=== PATIENT | female | born 1960 | race Caucasian/White ===

== ENCOUNTER 2018-01-04 13:54 | Emergency (ER) | payer BC ==
[~2018-01-04] VITALS: Ht 157.5 cm; Wt 72.0 kg
[~2018-01-04 13:54] MED LIST: ALBUAER2 INH; AZITTAB PO; BENZ1CAP90 PO; CLR10 PO; JUNEL; LEVO125T7 PO; METH4PAK4 PO; SIMV20TA2 PO
[2018-01-04 13:58] VITALS: TEMP 36.6; Ht 157.5 cm; Wt 72.0 kg
--- NOTE | 2018-01-04 14:25 | DIAGNOSTIC IMAGING REPORT ---
RIGHT KNEE 3 VIEWS CLINICAL HISTORY: Right knee pain. FINDINGS: AP, crosstable lateral, and sunrise views of the right knee are obtained. No prior studies are available for comparison at the time of dictation. The skeletal structures are osteopenic. No fracture is seen. A calcified fabella is incidentally noted. Mild degenerative narrowing is seen in the medial and patellofemoral compartments. There are tiny medial marginal osteophytes and small patellar enthesophytes. There is a small joint effusion. Soft tissue swelling is suggested posterior to the knee. IMPRESSION: 1. No acute bony abnormality is identified in the right knee. 2. Posterior soft tissue edema is suggested and there is a small joint effusion. Electronically signed by: Richmond Camacho M.D. 01/04/2018 2:24 PM Dictated Date/Time: 01/04/2018 2:22 PM
[2018-01-04 14:57] VITALS: BP 142/78; PULSE 75; O2SAT 98
[2018-01-04] MEDS ORDERED: CHOL400T5 PO (14:58)
[2018-01-04] MEDS ORDERED: SULF800T23 PO (14:58)
[2018-01-04] MEDS ORDERED: LEVO88TA3 PO (14:58)
--- NOTE | 2018-01-04 15:59 | EMERGENCY ROOM VISIT NOTE ---
History First contact with patient: 14:08 Chief Complaint: KNEEPAIN Stated Complaint: R KNEE PAIN History of Present Illness The patient is a 57 year old female who presents to the Emergency Room with complaints of right knee pain. The patient reports that she injured her knee a few days ago while pulling something heavy. She started to notice some swelling behind the knee. Today she attempted to kneel down onto the floor, and when she tried to stand up, had severe pain. The patient denies any clicking, locking or instability of the knee. She denies any pain extending into the thigh or leg. She denies paresthesias or numbness of the right lower extremity. The patient denies any prior history of right knee injuries, and currently rates her discomfort a 10 out of 10 with any attempted weightbearing. When not walking, she rates her discomfort a 3 out of 10. Review of Systems 10 system review was performed and was negative except for pertinent positives and negatives as indicated in history of present illness Past Medical/Surgical History Medical Problems: (1) Hyperlipidemia Nec/Nos (2) Hypothyroidism Nos Surgical Problems: (1) No history of previous surgery Family History FH: cancer FH: diabetes mellitus FH: gallbladder disease FH: heart disease FH: hypertension FH: lung disease Social History Smoking Status: Former Smoker Alcohol Use: occasionally Marital Status: Occupation Status: employed Current/Historical Medications Scheduled Cholecalciferol (Vitamin D), 1 TAB PO DAILY Levothyroxine Sodium (Levothyroxine Sodium), 1 TAB PO DAILY Loratadine (Claritin), 10 MG PO DAILY Sulfa/Trimethoprim (Bactrim Ds 800MG/160MG), 1 TAB PO BID Physical Exam Vital Signs Date Time Temp Pulse Resp B/P (MAP) Pulse Ox O2 Delivery O2 Flow Rate FiO2 01/04/18 14:57 75 16 142/78 98 01/04/18 13:58 36.6 75 18 147/85 99 Nasal Cannula Physical Exam CONSTITUTIONAL: Healthy and well nourished. Alert and oriented X 3 with positive affect. HEENT: Normocephalic, atraumatic. Pupils equal, round and reactive. NECK: Full active range of motion without discomfort. MUSCULOSKELETAL: Examination of the right knee does not show any ecchymosis or appreciable joint effusion. The patient does have some fullness posteriorly. She has mild tenderness to the hamstrings, but no obvious tendon defects. Patient has no tenderness to palpation about the patella or proximal fibular region. Negative anterior draw, negative posterior drawer. Collateral ligaments are intact. Pedal pulses are intact. INTEGUMENTARY: No rash or other significant dermatologic conditions noted. NEUROLOGIC: Right lower extremity is sensory intact. Medical Decision & Procedures ER Provider Diagnostic Interpretation: My interpretation of right knee x-rays shows a small joint effusion without any other acute findings. Radiologist report is as follows: RIGHT KNEE 3 VIEWS CLINICAL HISTORY: Right knee pain. FINDINGS: AP, crosstable lateral, and sunrise views of the right knee are obtained. No prior studies are available for comparison at the time of dictation. The skeletal structures are osteopenic. No fracture is seen. A calcified fabella is incidentally noted. Mild degenerative narrowing is seen in the medial and patellofemoral compartments. There are tiny medial marginal osteophytes and small patellar enthesophytes. There is a small joint effusion. Soft tissue swelling is suggested posterior to the knee. IMPRESSION: 1. No acute bony abnormality is identified in the right knee. 2. Posterior soft tissue edema is suggested and there is a small joint effusion. ED Course Patient history and physical exam were performed. Nurse's notes were reviewed. Vital signs were reviewed and were normal. The patient refused any analgesics. X-rays of the right knee were normal except for joint effusion, and posterior fullness of the knee. A knee immobilizer and crutches were dispensed. The patient was encouraged to intermittently apply ice to the knee, and elevate for swelling. Ibuprofen and Tylenol in alternating fashion if needed for additional pain relief. I did suggest follow-up with orthopedics for further reevaluation and management. The patient was happy with plan of care, voiced understanding of all discharge instructions, and rated her discomfort a 3 out of 10 at the conclusion of my exam. Medical Decision Medication Reconcilliation Current Medication List: was personally reviewed by me Blood Pressure Screening Patient's blood pressure: Normal blood pressure Impression Primary Impression: Right knee injury Departure Information Referrals Shasta Vegas D.O. (PCP) Patient Instructions My [facility]
== END 2018-01-04 14:58 | disposition home or self-care (01) ==
LOC: C.EDB 13:56 → C.EDD 14:58
DX: S89.91XA Unspecified injury of right lower leg, initial encounter (principal); X58.XXXA Exposure to other specified factors, initial encounter; E78.5 Hyperlipidemia, unspecified; E03.9 Hypothyroidism, unspecified; Z87.891 Personal history of nicotine dependence